=== PATIENT | female | born 1990 | race Two or more races ===

== ENCOUNTER 2022-11-03 00:14 | Emergency (ER) | payer OTHER ==
[~2022-11-03] VITALS: Ht 152.4 cm; Wt 53.1 kg
--- NOTE | 2022-11-03 00:45 | NUR ---
BIBS FOR N/V/D X 1 DAY. HAS HAD SIMILIAR FEELING BEFORE BUT TODAYS WAS WORSE, AND FEELING WEAK
[2022-11-03] MEDS ORDERED: ONDANSETRON HCL/PF 4 MG/2 ML VIAL ONE (00:46)
[2022-11-03] MEDS ORDERED: FAMOTIDINE/PF INJ 20 MG/2 ML VIAL IV ONE (00:47)
[2022-11-03] MEDS: IV NS 0.9% 1,000 ML BAG IV ONE (01:01)
[2022-11-03] MEDS: FAMOTIDINE/PF INJ 20 MG/2 ML VIAL IV ONE (01:01)
[2022-11-03] MEDS: ONDANSETRON HCL/PF - ER 4 MG/2 ML VIAL IV ONE (01:01)
[2022-11-03] MEDS ORDERED: ACETAMINOPHEN ES 500 MG TABLET ONE (01:02)
[2022-11-03] MEDS: ACETAMINOPHEN ES 500 MG TABLET PO ONE (01:04)
--- NOTE | 2022-11-03 01:04 | NUR ---
RAC 20G ESRTABLISHED, BLOOD COLLECTED AND SENT TO LAB
--- NOTE | 2022-11-03 01:05 | NUR ---
URINE SAMPLE COLLECTED AND SENT TO LAB
[2022-11-03 01:20] LABS: WHITE BLOOD COUNT (AUTO) 8.3 K/uL (4.3-11.0)
[2022-11-03 01:22] LABS: BILIRUBIN,URINE NEGATIVE (NEGATIVE); COLOR,URINE YELLOW (YELLOW); LEUKOCYTE ESTERASE ,URINE NEGATIVE (NEGATIVE); NITRITE, URINE NEGATIVE (NEGATIVE); PH,URINE 6.5 (5.0-8.0); PROTEIN,URINE NEGATIVE (NEGATIVE); UGLUCOSE NEGATIVE (NEGATIVE); UROBILINOGEN,URINE 0.2 EU/dL (0.2)
[2022-11-03 01:25] LABS: BASOPHILS % (AUTO) 0.6 % (0.0-2.0); EOSINOPHILS % (AUTO) 1.9 % (0.0-6.0); HEMATOCRIT 40 % (33-45); HEMOGLOBIN 13.8 g/dL (11.5-14.8); LYMPHOCYTES # (AUTO) 2.9 K/uL (0.8-4.8); LYMPHOCYTES % (AUTO) 35.2 % (20.0-44.0); MEAN CORPUSCULAR HGB CONC 35 g/dl (31.0-36.0); MEAN CORPUSCULAR VOLUME 88 fL (82-100); MONOCYTES # (AUTO) 0.5 K/uL (0.1-1.30); MONOCYTES % (AUTO) 5.5 % (2.0-12.0); NEUTROPHILS # (AUTO) 4.7 K/uL (1.8-8.9); NEUTROPHILS % (AUTO) 56.8 % (43.0-81.0); PLATELET COUNT (AUTO) 290 K/uL (150-450); RED BLOOD CELL COUNT(AUTO) 4.55 MIL/uL (4.0-5.2)
[2022-11-03 01:26] LABS: CREATININE 0.6 mg/dL (0.6-1.3); POTASSIUM 3.6 mmol/L (3.5-5.1)
[2022-11-03 01:31] LABS: ALBUMIN 4.1 g/dL (3.4-5.0); BILIRUBIN,DIRECT 0.1 mg/dL (0.0-0.2); BILIRUBIN,TOTAL 0.4 mg/dL (0.2-1.0); TOTAL PROTEIN, SERUM 7.6 g/dL (6.4-8.2)
[2022-11-03 01:37] LABS: BACTERIA,URINE Few /HPF (None Seen); RBC,URINE 0-2 /HPF (0-2); SQUAMOUS EPITHELIAL CELL,UR 0-2 /HPF (None Seen); WBC,URINE 0-2 /HPF (0-3)
[2022-11-03] MEDS ORDERED: ONDA4TAB11 PO (01:39)
--- NOTE | 2022-11-03 02:25 | NUR ---
IV removed. Catheter intact and site benign. Pressure and 4x4 applied to site. No bleeding noted.
--- NOTE | 2022-11-03 02:25 | NUR ---
Patient discharged to home in stable condition. Written and verbal after care instructions given. Patient verbalizes understanding of instruction.
[2022-11-03 02:26] VITALS: BP 116/73; TEMP 98.5; O2SAT 100
== END 2022-11-03 02:27 | disposition home or self-care (01) ==
LOC: ER 00:18
DX: R19.7 Diarrhea, unspecified (principal); R11.2 Nausea with vomiting, unspecified; R51.9 Headache, unspecified; F17.200 Nicotine dependence, unspecified, uncomplicated; Z79.899 Other long term (current) drug therapy
CPT/HCPCS: 99284; 96374; 96361; 96375; 85025; 80048; 83690; 80076; 84703; 81001; 36415; J3490; J2405 ×2; J7030